=== PATIENT | female | born 1970 | race American Indian/Alaskan Native ===

== ENCOUNTER 2018-01-25 15:01 | Emergency (ER) | payer BC, OTHER ==
[~2018-01-25] VITALS: Ht 154.9 cm; Wt 106.1 kg
[2018-01-25] MEDS ORDERED: LANTUS100 UNITS/ (15:33)
[2018-01-25] MEDS ORDERED: ZITHROMAX250 MG PO (16:29)
[2018-01-25] MEDS ORDERED: CRESTOR40 MG NG (16:52)
[2018-01-25] MEDS ORDERED: COZAAR25 MG PO (16:53)
--- NOTE | 2018-01-26 07:37 | EKG ---
[facility] [address] [facility] [place], [place] [address] Signed Normal sinus rhythm Normal ECG No previous ECGs available Confirmed by BUCK STONE MD ([id number]) on 01/26/2018 7:37:38 AM Electronically Signed By: BUCK STONE MD 01/26/18 0737 PATIENT NAME: GLORIA HENSLEY Electrocardiogram DATE OF : 72 PHYSICIAN: BUCK STONE MD REPORT #: [id number] REPORT IS CONFIDENTIAL AND NOT TO BE RELEASED WITHOUT AUTHORIZATION
== END 2018-01-25 16:55 | disposition home or self-care (01) ==
LOC: ED 15:01
DX: R07.9 Chest pain, unspecified (principal); I10 Essential (primary) hypertension; E11.9 Type 2 diabetes mellitus without complications; F17.200 Nicotine dependence, unspecified, uncomplicated; Z79.4 Long term (current) use of insulin
CPT/HCPCS: 71045; 80053; 83735; 84484; 85025; 93005; 93010; 99284

== ENCOUNTER 2021-12-21 16:58 | Emergency (ER) | payer OTHER ==
[~2021-12-21] VITALS: Ht 154.9 cm; Wt 106.1 kg
[~2021-12-21 16:58] MED LIST: COZAAR25 MG PO; CRESTOR40 MG NG; LANTUS100 UNITS/; ZITHROMAX250 MG PO
[2021-12-21] MEDS ORDERED: OZEMPIC0.25 MG/0. SUB-Q (17:10)
[2021-12-21] MEDS ORDERED: FENOFIBRATE160 MG PO (17:11)
[2021-12-21] MEDS ORDERED: EPIPEN 2-P0.3 MG/0.3 IM (18:25)
== END 2021-12-21 18:53 | disposition home or self-care (01) ==
LOC: ED 16:58
DX: T80.62XA Other serum reaction due to vaccination, initial encounter (principal); T50.Z95A Adverse effect of other vaccines and biological substances, initial encounter; I10 Essential (primary) hypertension; E11.9 Type 2 diabetes mellitus without complications; F17.200 Nicotine dependence, unspecified, uncomplicated; Z79.899 Other long term (current) drug therapy
CPT/HCPCS: 99283

== ENCOUNTER 2022-09-26 06:35 | Day surgery (SDC) | payer OTHER ==
[~2022-09-26] VITALS: Ht 154.9 cm; Wt 117.0 kg
[~2022-09-26 06:35] MED LIST changes: +EPIPEN 2-P0.3 MG/0.3 IM; +FENOFIBRATE160 MG PO; +OZEMPIC0.25 MG/0. SUB-Q
--- NOTE | 2022-09-26 08:00 | NUR ---
09/26/22 0800 Chanelle,Josie 0750 PT ARRIVED TO PACU ON 3L VIA NC. PT WAKES TO TACTILE STIMULI AND IS REORIENTED TO PACU AND EASILY FALLS BACK TO SLEEP. RESP EVEN AND UNLABORED WITH SMALL AMOUNT OF SNORING.
--- NOTE | 2022-09-26 09:28 | OR ---
[facility] [address] [place], [place] [address] Signed DATE OF OPERATION: 09/26/2022 SURGEON: Britney Thakkar MD PREOPERATIVE DIAGNOSES: 1. Irritable bowel syndrome with constipation. 2. Paternal grandfather with colon cancer in his 70s. 3. Maternal uncles x2 and paternal aunts x3 with stomach or colon cancer. POSTOPERATIVE DIAGNOSES: 1. Minimal left-sided diverticulosis. 2. 4 mm polyps x2 at 7 cm. PROCEDURE: Colonoscopy with hot biopsy. ESTIMATED BLOOD LOSS: None. INDICATIONS: Zeny is a 51-year-old obese diabetic female, asked to see me for her colonoscopy. She spoke of irritable bowel syndrome with constipation. She had a colonoscopy around age 39 in [place], [place]. To her knowledge that was negative. She told me her paternal grandfather had colon cancer in his 70s. He of his colon cancer. She has two paternal uncles and three paternal aunts, all of which have either stomach or colon cancer. She said her father did not have colon cancer or polyps. She currently has no specific lower GI complaints. In the office, I gave her a pamphlet on colonoscopy. She understands the nature of the test. There is risk including, but not limited to gas bloating, crampy abdominal pain, bleeding, perforation requiring surgery, and missed diagnosis. We also reviewed the need for IV conscious sedation. She had expressed understanding and wished to proceed. PROCEDURE IN DETAIL: Zeny was taken into our endoscopy suite and placed in the left lateral decubitus position. She was given 5 mg of Versed and 150 mcg of fentanyl to cover the case. Thankfully, Zeny is not difficult to pass the scope. However, she was frequently awake and moaning during the procedure. Her body mass index is 48. She frequently was not breathing and we had to hold her mandible. In the future, she may be better served with monitored anesthesia care and infusion of propofol. A digital rectal exam was performed and this was unremarkable. She had good sphincter tone. There were no Electronically Signed By: BRITNEY THAKKAR MD 09/26/22 0928 PATIENT NAME: ZENY DIEHL OPERATIVE REPORT DATE OF : 72 REPORT #: [id number] PHYSICIAN: BRITNEY THAKKAR MD PCP: MAURICIO DEUTSCH REPORT IS CONFIDENTIAL AND NOT TO BE RELEASED WITHOUT AUTHORIZATION [facility] [address] [place], [place] [address] Signed external hemorrhoids. No masses. The adult colonoscope had been introduced and advanced all around into the cecum under direct visualization of the camera. Her prep was quite good. We could easily see the appendiceal orifice and the ileocecal valve. The scope was then slowly withdrawn. We took pictures throughout for photodocumentation. We saw two moderate-sized diverticula in her left colon. The rectum had just two tiny polyps removed with a hot biopsy forceps. Upon retroflexion of the scope, we did not see any additional pathology above the anal canal. After this, the gas was suctioned out and the colonoscope removed. Overall, Zeny tolerated the procedure well. RECOMMENDATIONS: I will see Zeny back in my office in 7 to 14 days to review her results. She might consider monitored anesthesia care in the future as described above. Britney Thakkar MD ALB/MODL /[id number] cc: Britney Thakkar MD [facility] Copies: BRITNEY THAKKAR MD ~ Electronically Signed By: BRITNEY THAKKAR MD 09/26/22 0928 PATIENT NAME: ZENY DIEHL OPERATIVE REPORT DATE OF : 72 REPORT #: [id number] PHYSICIAN: BRITNEY THAKKAR MD PCP: MAURICIO DEUTSCH REPORT IS CONFIDENTIAL AND NOT TO BE RELEASED WITHOUT AUTHORIZATION
--- NOTE | 2022-09-26 10:18 | NUR ---
PT ALERT, ORIENTED AND JUST "KIND OF WAITING". PT HERE FOR A ROUTINE SCOPE, HER DAUGHTER WILL BE HERE FOR DC. PT SAID SHE HAD BEEN PRAYING AND REQUESTED PRAYER. GAVE ENCOURAGEMENT, WILL FOLLOW
--- NOTE | 2022-09-28 13:04 | PATH ---
[facility] [address] [place], [place] [address] Signed SPECIMEN(S): A COLON POLYP AT 7 CM SPECIMEN SOURCE: A. COLON POLYP AT 7 CM CLINICAL HISTORY: Family history of colon cancer; personal history of IBS with constipation. Postop diagnosis: Colon polyp, diverticulosis FINAL PATHOLOGIC DIAGNOSIS: Colon polyp at 7 cm: - Tubular adenoma (one fragment). - Hyperplastic polyp (one fragment). JVR:viviana:[id number] MICROSCOPIC EXAMINATION: Histologic sections of all submitted blocks are examined by light microscopy. These findings, together with the gross examination, support the pathologic diagnosis. GROSS DESCRIPTION: The specimen, labeled "CS, colon polyp at 7 cm," is received in formalin and consists of five munoz soft tissue fragments that measure less than 0.1 to 0.3 cm in greatest dimension. The specimen is entirely submitted in cassette (A1). HH (under the direct supervision of a pathologist) The Gross Description was prepared using a voice recognition system. The report was reviewed for accuracy; however, sound-alike word errors, addition and/or deletions may occur. If there is any question about this report, please contact Client Services. PERFORMING LABORATORY: The technical component was performed by [email or web address], [address] [place] [id number] (CLIA# [id number]). Professional interpretation was performed by [facility], [address] [place] [id number] (CLIA#: [id number]). Diagnostician: Dayton Barrera MD Pathologist Electronically Signed 09/28/2022 PATIENT NAME: GLORIA DIEHL PATHOLOGY DATE OF : 72 REPORT #: [id number] PHYSICIAN: SAMIR PATHOLOGY PCP: MAURICIO DEUTSCH REPORT IS CONFIDENTIAL AND NOT TO BE RELEASED WITHOUT AUTHORIZATION [address] [address] Signed Copies: ~ PATIENT NAME: GLORIA DIEHL PATHOLOGY DATE OF : 72 REPORT #: [id number] PHYSICIAN: SAMIR PATHOLOGY PCP: MAURICIO DEUTSCH REPORT IS CONFIDENTIAL AND NOT TO BE RELEASED WITHOUT AUTHORIZATION
== END 2022-09-26 08:55 | disposition home or self-care (01) ==
LOC: DS 06:35 → OPS 06:35 → DS 07:30 → OPS 08:55
PROVIDERS: ATTEND Colon & Rectal Surgery
PROC: 0DBP8ZX Excision of Rectum, Via Natural or Artificial Opening Endoscopic, Diagnostic (ICD-10-PCS; principal; 2022-09-26 07:30)
DX: K58.1 Irritable bowel syndrome with constipation (principal); K57.30 Diverticulosis of large intestine without perforation or abscess without bleeding; D12.8 Benign neoplasm of rectum; E11.9 Type 2 diabetes mellitus without complications; I10 Essential (primary) hypertension; E78.2 Mixed hyperlipidemia; E55.9 Vitamin D deficiency, unspecified; E66.01 Morbid (severe) obesity due to excess calories; Z80.0 Family history of malignant neoplasm of digestive organs; Z68.42 Body mass index [BMI] 45.0-49.9, adult; Z87.891 Personal history of nicotine dependence; Z79.4 Long term (current) use of insulin; Z91.040 Latex allergy status
CPT/HCPCS: 84703; 99153; G0500; J2250; J3010; J7121

== ENCOUNTER 2024-04-04 11:52 | Emergency (ER) | payer OTHER ==
[~2024-04-04] VITALS: Ht 154.9 cm; Wt 117.2 kg
[2024-04-04] MEDS ORDERED: MOUNJARO5 MG/0.5 M SUB-Q (12:12)
[2024-04-04] MEDS ORDERED: ATORVASTATIN CA40 MG PO (12:13)
[2024-04-04] MEDS ORDERED: NOVOLOG FL100 UNIT/1 SUB-Q (12:13)
[2024-04-04] MEDS ORDERED: FENOFIBRATE160 MG PO (12:14)
[2024-04-04 12:46] LABS: BASOPHILS 0.7 % (0-2); EOSINOPHILS 1.6 % (0-6); HEMATOCRIT 39.4 % (35.0-50.0); HEMOGLOBIN 13.1 g/dL (12.0-18.0); LYMPHOCYTES 23.3 % (24-44); MCH 26.3 (27-36); MCHC 33.2 g/dl (30-36); MCV 79.2 fl (81-99); MONOCYTES 4.3 % (0-12); NEUTROPHILS 70.1 % (39-80); PLATELET COUNT 247 K/uL (140-440); RBC 4.98 M/ul (4.3-5.7); RDW 15.7 (10.5-15.0)
[2024-04-04 13:06] LABS: ALBUMIN 3.3 g/dL (3.4-5.0); ALBUMIN/GLOBULIN RATIO 0.89 (1.1-2.4); ANION GAP 11.9 (7-21); BILIRUBIN, TOTAL 0.5 ng/dL (0.2-1.0); BUN/CREATININE RATIO 17.24 (6.0-28.6); CALCIUM 8.7 mg/dL (8.5-10.1); CREATININE, SERUM 0.87 mg/dL (0.55-1.02); POTASSIUM 3.9 mmol/L (3.5-5.1)
[2024-04-04 13:48] VITALS: BP 123/76
--- NOTE | 2024-04-06 12:51 | EKG ---
[facility] [address] [facility] [place], [place] [address] Signed Normal sinus rhythm Normal ECG No previous ECGs available Confirmed by ROSALINE HARVEY MD ([id number]) on 04/06/2024 12:51:15 PM Electronically Signed By: ROSALINE HARVEY 04/06/24 1251 PATIENT NAME: GLORIA DIEHL Electrocardiogram DATE OF : 72 PHYSICIAN: ROSALINE HARVEY REPORT #: [id number] REPORT IS CONFIDENTIAL AND NOT TO BE RELEASED WITHOUT AUTHORIZATION
== END 2024-04-04 13:32 | disposition home or self-care (01) ==
LOC: ED 11:52
PROVIDERS: Emergency Medicine
DX: R07.89 Other chest pain (principal); E11.9 Type 2 diabetes mellitus without complications; I10 Essential (primary) hypertension; F17.200 Nicotine dependence, unspecified, uncomplicated; Z88.7 Allergy status to serum and vaccine; Z91.010 Allergy to peanuts; Z79.4 Long term (current) use of insulin; Z79.899 Other long term (current) drug therapy
CPT/HCPCS: 36415; 71045; 80053; 84484; 85025; 85379; 93005; 93010; 99285-25

== ENCOUNTER 2025-03-11 22:13 | Emergency (ER) | payer OTHER ==
[~2025-03-11] VITALS: Ht 154.9 cm; Wt 113.0 kg
[~2025-03-11 22:13] MED LIST changes: +ATORVASTATIN CA40 MG PO; +MOUNJARO5 MG/0.5 M SUB-Q; +NOVOLOG FL100 UNIT/1 SUB-Q
[2025-03-11] MEDS ORDERED: ROSUVASTATIN CA10 MG PO (22:30)
[2025-03-11] MEDS ORDERED: JARDIANCE10 MG PO (22:30)
[2025-03-11] MEDS ORDERED: LOSARTAN POTASS25 MG (22:30)
[2025-03-11] MEDS ORDERED: TOUJEO SOL300 UNIT/1 SUB-Q (22:32)
[2025-03-11] MEDS ORDERED: MORPHINE SULFATE 4 MG/ML VIAL IV ONE (22:45)
[2025-03-11] MEDS ORDERED: SODIUM CHLORIDE 0.9% 1,000 ML IV ONE (22:45)
[2025-03-11] MEDS ORDERED: ondansetron HCL 4 MG/2 ML VIAL IV ONE (22:45)
[2025-03-11 22:54] LABS: BILIRUBIN, URINE NEGATIVE (negative); BLOOD/HGB, URINE NEGATIVE (Negative); KETONE, URINE NEGATIVE (Negative); LEUK ESTERASE, URINE NEGATIVE (negative); NITRITE, URINE NEGATIVE (negative)
[2025-03-11 23:07] LABS: ANION GAP 16.4 (7-21); BILIRUBIN, TOTAL 0.9 mg/dL (0.2-1.0); CALCIUM 7.7 mg/dL (8.5-10.1); POTASSIUM 4.4 mmol/L (3.5-5.1)
[2025-03-11 23:09] LABS: HEMATOCRIT 44.3 % (35.0-50.0); HEMOGLOBIN 14.6 g/dL (12.0-18.0); MCH 25.6 (27-36); MCV 77.6 fl (81-99); PLATELET COUNT 247 K/uL (140-440); RBC 5.71 M/ul (4.3-5.7); RDW 17.1 (10.5-15.0)
[2025-03-11 23:22] LABS: BANDS, MANUAL DIFF 1; EOSINOPHILS, MANUAL DIFF 4; LYMPHOCYTES, MANUAL DIFF 34; NEUTROPHILS, MANUAL DIFF 61
[2025-03-11] MEDS ORDERED: SUCRALFATE 1 GM TAB PO ONE (23:30)
[2025-03-11] MEDS ORDERED: PANTOPRAZOLE SODIUM 40 MG/10 ML VIAL IV ONE (23:30)
[2025-03-11] MEDS ORDERED: LIDOCAINE & ANTACID 35 ML BTL PO ONE (23:30)
[2025-03-12] LABS: ALBUMIN 2.8 g/dL (3.4-5.0)
[2025-03-12 00:07] LABS: ALBUMIN/GLOBULIN RATIO 0.62 (1.1-2.4); BUN/CREATININE RATIO 14.86 (6.0-28.6); CREATININE, SERUM 0.74 mg/dL (0.55-1.02); PROTEIN, TOTAL 7.3 g/dL (6.4-8.2)
[2025-03-12] MEDS ORDERED: CARAFATE1 GM PO (00:13)
[2025-03-12] MEDS ORDERED: PROTONIX40 MG PO (00:13)
[2025-03-12 00:33] VITALS: BP 136/79
== END 2025-03-12 00:35 | disposition home or self-care (01) ==
LOC: ED 22:13
PROVIDERS: Family Medicine
DX: K29.70 Gastritis, unspecified, without bleeding (principal); I10 Essential (primary) hypertension; E11.9 Type 2 diabetes mellitus without complications; F17.200 Nicotine dependence, unspecified, uncomplicated; Z79.4 Long term (current) use of insulin; Z88.7 Allergy status to serum and vaccine; Z91.040 Latex allergy status
CPT/HCPCS: 36415; 76705; 80053; 81003; 83690; 85025; 96361; 96374; 96375; 99284-25; J2270; J2405; J2470; J7030